=== PATIENT | female | born 1975 | race Caucasian/White ===

== ENCOUNTER 2019-08-18 17:55 | Emergency (ER) | payer OTHER ==
[~2019-08-18] VITALS: Ht 175.3 cm; Wt 77.0 kg
--- NOTE | 2019-08-18 18:14 | NUR ---
PT PLACED ON BP CUFF, PULSE OX. CALL LIGHT WITHIN REACH. WARM BLANKET PROVIDED. IV ESTABLISHED, LABS DRAWN WITH START, AWAITING ERP ORDERS.
[2019-08-18] MEDS ORDERED: DIAZEPAM 5 MG/ML, 2ML ONE (18:40)
[2019-08-18] MEDS ORDERED: HYDROmorphone 1 MG/ML, 1ML INJ ONE ×2 (18:41→19:49)
[2019-08-18] MEDS: HYDROmorphone 2 MG/ML, 1ML IVPush PRN ×2 (18:45→19:58)
--- NOTE | 2019-08-18 18:50 | NUR ---
PT MEDICATED PER ERP ORDER FOR 10/10 LOW BACK AND LEFT LEG PAIN. CALL LIGHT WITHIN REACH.
[2019-08-18] MEDS ORDERED: SODIUM CHLORIDE FLUSH 10ML SYR IVF ONE (19:00)
[2019-08-18] MEDS ORDERED: DIAZEPAM 5 MG/ML, 2ML IVPush ONE (19:00)
--- NOTE | 2019-08-18 19:52 | NUR ---
REPORT TO RENO VELEZ, TRANSFER OF CARE AT THIS TIME.
--- NOTE | 2019-08-18 20:01 | NUR ---
when checking on pt she was sitting calmly on gurney, on her phone. when we asked how she was pt began yelling and screaming that she was in pain and said that we hadnt given her any medications. pt informed of all the medications we had given her for her pain. pt medicated again for pain and helped onto bed belcher for urination.
--- NOTE | 2019-08-18 20:01 | NUR ---
report from nathan tucker
--- NOTE | 2019-08-18 20:15 | NUR ---
PT RELIEVED OF URINE AND PT STATES PAIN RELIEF.
[2019-08-18 21:05] VITALS: BP 122/66
== END 2019-08-18 21:13 | disposition home or self-care (01) ==
LOC: ED 21:07
DX: M54.42 Lumbago with sciatica, left side (principal); F17.200 Nicotine dependence, unspecified, uncomplicated
CPT/HCPCS: 96374; 96375; 96376; 99283; J1170; J3360